=== PATIENT | male | born 1945 | race American Indian/Alaskan Native ===

== ENCOUNTER 2017-04-14 05:01 | Emergency (ER) | payer MEDICARE, BC ==
[2017-04-14 05:48] LABS: Basophils % (Auto) 0.5 % (0.0-1.8); Hematocrit 46.4 % (35.5-45.6); Hemoglobin 15.7 gm/dl (11.8-15.2); Mean Corpuscular HGB Conc 34 % (32-34); Mean Corpuscular Hemoglobin 32 pg (28-32); Mean Corpuscular Volume 95 fl (84-94); Platelet Count 224 K/mm3 (140-440); Red Blood Count 4.89 M/mm3 (3.65-5.03); Red Cell Distribution Width 13.6 % (13.2-15.2); White Blood Count 7.8 K/mm3 (4.5-11.0)
[2017-04-14 05:59] LABS: INR 0.85 (0.87-1.13)
[2017-04-14 06:00] LABS: Partial Thromboplastin Time 26.8 Sec. (24.2-36.6)
[2017-04-14 06:07] LABS: Anion Gap 20 mmol/L; BUN/Creatinine Ratio 15.71; Blood Urea Nitrogen 11 mg/dL (9-20); Calcium 9.7 mg/dL (8.4-10.2); Carbon Dioxide 21 mmol/L (22-30); Chloride 102.2 mmol/L (98-107); Glucose 162 mg/dL (75-100); Potassium 4.7 mmol/L (3.6-5.0); Sodium 138 mmol/L (137-145)
[2017-04-14 07:49] LABS: Bilirubin,Urine NEG (Negative); Blood,Urine SM (Negative); Ketones,Urine NEG (Negative); Leukocyte Esterase,Urine NEG (Negative); Mucus,Urine FEW /HPF; Nitrite,Urine NEG (Negative); Protein,Urine <15 mg/dL mg/dL (Negative); Urobilinogen,Urine < 2.0 mg/dL (<2.0); WBC,Urine < 1.0 /HPF (0.0-6.0)
[2017-04-14] MEDS ORDERED: BABY ASPIRIN PO ONE (10:04)
--- NOTE | 2017-04-14 10:04 | Emergency Department Report ---
ED Chest Pain HPI - General Chief Complaint: Chest Pain Stated Complaint: CHEST AND BACK PAIN Time Seen by Provider: 04/14/17 10:00 Source: patient Mode of arrival: Ambulatory Limitations: No Limitations - History of Present Illness Initial Comments: Patient is a 72-year-old male with a history of hypertension, diabetes, and chronic back pain who presents with right upper back pain and chest pain. Patient reports for the last 3 days he's had right upper back pain that radiates around to the right side of his chest. Pain is constant, sharp, exacerbated with movement and deep breaths. Patient reports it started with right lower back pain has now migrated up to his right shoulder blade and around the R side of the chest. Pt has had lower back pain in the past, but not R upper back pain. Otherwise no fevers, chills, ORANTES, diaphoresis, SOB, jaw pain, extremity pains, paresthesias, abdominal pain, NVD, lower leg edema/pain, travel , or sick contacts. PMD: Dr Neena MIRAMONTES Complaint: chest pain - Related Data Home Medications Medication Instructions Recorded Confirmed Last Taken Aspirin [Aspirin BABY CHEW TAB] 81 mg PO DAILY 04/14/17 04/14/17 Unknown Losartan [Cozaar] 50 mg PO DAILY 04/14/17 04/14/17 Unknown Previous Rx's Medication Instructions Recorded Last Taken Type Levofloxacin [Levaquin] 750 mg PO QDAY #7 tablet 04/14/17 Unknown Rx Naproxen [Naprosyn] 500 mg PO BID PRN #14 tablet 04/14/17 Unknown Rx Allergies Allergy/AdvReac Type Severity Reaction Status Date / Time No Known Allergies Allergy Unverified 04/14/17 05:18 Heart Score - HEART Score History: Moderately suspicious EKG: Normal Age: > 65 Risk factors: 1-2 risk factors Troponin: < normal limit HEART Score: 4 ED Review of Systems ROS: Stated complaint: CHEST AND BACK PAIN Other details as noted in HPI Comment: All other systems reviewed and negative ED Past Medical Hx - Past Medical History Previous Medical History?: Yes Hx Hypertension: Yes Hx Diabetes: Yes - Social History Smoking Status: Current Every Day Smoker - Medications Home Medications: Home Medications Medication Instructions Recorded Confirmed Last Taken Type Aspirin [Aspirin BABY CHEW TAB] 81 mg PO DAILY 04/14/17 04/14/17 Unknown History Levofloxacin [Levaquin] 750 mg PO QDAY #7 tablet 04/14/17 Unknown Rx Losartan [Cozaar] 50 mg PO DAILY 04/14/17 04/14/17 Unknown History Naproxen [Naprosyn] 500 mg PO BID PRN #14 tablet 04/14/17 Unknown Rx ED Physical Exam - General Limitations: No Limitations General appearance: alert, in no apparent distress - Head Head exam: Present: atraumatic, normocephalic - Eye Eye exam: Present: normal appearance - ENT ENT exam: Present: mucous membranes moist - Neck Neck exam: Present: normal inspection - Respiratory Respiratory exam: Present: normal lung sounds bilaterally. Absent: respiratory distress, wheezes, rales, rhonchi, stridor - Cardiovascular Cardiovascular Exam: Present: regular rate, normal rhythm. Absent: bradycardia , tachycardia, systolic murmur, diastolic murmur, rubs, gallop - GI/Abdominal GI/Abdominal exam: Present: soft, normal bowel sounds. Absent: distended, tenderness, guarding, rebound, rigid - Rectal Rectal exam: Present: deferred - Extremities Exam Extremities exam: Present: normal inspection - Back Exam Back exam: Present: normal inspection, tenderness. Absent: full ROM (decreased due to pain) - Neurological Exam Neurological exam: Present: alert, oriented X3 - Psychiatric Psychiatric exam: Present: normal affect, normal mood - Skin Skin exam: Present: warm, dry, intact, normal color. Absent: rash ED Course Vital Signs 04/14/17 04/14/17 04/14/17 05:22 11:34 11:35 Temperature 98.7 F 98.3 F Pulse Rate 95 H 80 Respiratory 18 16 18 Rate Blood Pressure 145/89 Blood Pressure 143/87 [Left] O2 Sat by Pulse 95 100 96 Oximetry 04/14/17 12:13 Temperature 98.3 F Pulse Rate 85 Respiratory 20 Rate Blood Pressure Blood Pressure 132/84 [Left] O2 Sat by Pulse 95 Oximetry - Reevaluation(s) Reevaluation #1: 04/14/17 12:35 Pt reports significant improvement with pain SABINE score - Sabine Score Age > 65: (1) Yes Aspirin use within the Past 7 Days: (1) Yes 3 or more CAD Risk Factors: (1) Yes 2 or more Angina events in past 24 hrs: (0) No Known CAD with more than 50% Stenosis: (0) No Elevated Cardiac Markers: (0) No ST Deviation Greater than 0.5mm: (0) No SABINE Score: 3 ED Medical Decision Making - Lab Data Result diagrams: 04/14/17 05:34 04/14/17 05:34 - EKG Data -: EKG Interpreted by Me - EKG Data 04/14/17 10:02 EKG 05:04 Normal sinus rhythm at 94 beats per min, QTC 422 ms, left atrial enlargement, normal axis, no LVH, no ST changes, no STEMI - Radiology Data Radiology results: report reviewed CXR: Bibasilar atelectasis, questionable right basilar infiltrate - Medical Decision Making Pt reports significant improvement, given R sided sx and infiltrate, will treat as PNA. Pt to follow up with PMD this week Critical care attestation.: If time is entered above; I have spent that time in minutes in the direct care of this critically ill patient, excluding procedure time. ED Disposition Clinical Impression: Right-sided chest pain, PNA (pneumonia) Disposition: TO HOME OR SELFCARE Is pt being admited?: No Condition: Stable Instructions: Chest Pain (ED), Bacterial Pneumonia (ED) Prescriptions: Levofloxacin [Levaquin] 750 mg PO QDAY #7 tablet Naproxen [Naprosyn] 500 mg PO BID PRN #14 tablet PRN Reason: Pain
[2017-04-14] MEDS ORDERED: TORADOL IV ONE (10:35)
--- NOTE | 2017-04-14 11:03 | XRay Report ---
PA and lateral chest: There is atelectasis or infiltrate at the right lung base. Mild patchy atelectasis present at the left lung base. The mid and upper portions of the lungs are clear. The aorta is tortuous. The heart is normal in size. Is no vascular congestion. No recent prior studies are available for comparison. Impression: Bibasilar atelectasis with questionable right basilar infiltrate.
[2017-04-14 11:46] LABS: Bilirubin,Urine NEG (Negative); Blood,Urine SM (Negative); Ketones,Urine NEG (Negative); Leukocyte Esterase,Urine NEG (Negative); Mucus,Urine FEW /HPF; Nitrite,Urine NEG (Negative); Protein,Urine <15 mg/dL mg/dL (Negative); Urobilinogen,Urine < 2.0 mg/dL (<2.0); WBC,Urine < 1.0 /HPF (0.0-6.0)
[2017-04-14 12:13] VITALS: BP 132/84
== END 2017-04-14 13:30 | disposition home or self-care (01) ==
LOC: ED 05:01
DX: J18.9 Pneumonia, unspecified organism (principal); R07.9 Chest pain, unspecified; I10 Essential (primary) hypertension; E11.9 Type 2 diabetes mellitus without complications; F17.200 Nicotine dependence, unspecified, uncomplicated
CPT/HCPCS: 36415; 71020; 80048; 81001; 84484; 85025; 85379; 85610; 85730; 93005; 93010; 96374; 99285; J1885

== ENCOUNTER 2022-04-08 05:45 | Day surgery (SDC) | payer MEDICARE ==
[2022-04-04 11:27] LABS: Hematocrit 43.4 % (35.5-45.6); Mean Corpuscular HGB Conc 35 % (32-34); Mean Corpuscular Volume 92 fl (84-94); Platelet Count 223 K/mm3 (140-440); Red Blood Count 4.73 M/mm3 (3.65-5.03); Red Cell Distribution Width 13.3 % (13.2-15.2)
[2022-04-04 11:47] LABS: Alanine Aminotransferase 23 units/L (7-56); Albumin 4.5 g/dL (3.9-5); BUN/Creatinine Ratio 19; Blood Urea Nitrogen 15 mg/dL (9-20); Hemolysis Index 5
[2022-04-08] MEDS ORDERED: LACTATED RINGERS 1,000 ML IV SCH (06:00)
--- NOTE | 2022-04-08 07:33 | Anesthesia Consultation ---
Anesthesia Consult and Med Hx Date of service: 04/08/22 - Airway Anesthetic Teeth Evaluation: Good (multiple missing teeth; denies loose teeth) ROM Head & Neck: Adequate Mental/Hyoid Distance: Adequate Mallampati Class: Class II Intubation Access Assessment: Probably Good - Pre-Operative Health Status ASA Pre-Surgery Classification: ASA3 Proposed Anesthetic Plan: General - Pulmonary Hx Smoking: Yes (quit 2wks ago) Hx Respiratory Symptoms: No Hx Sleep Apnea: Yes (occasional CPAP) - Cardiovascular System Hx Hypertension: Yes Hx Heart Attack/AMI: No Hx Percutaneous Transluminal Coronary Angioplasty (PTCA): No - Central Nervous System CVA: No Hx Psychiatric Problems: Yes (PTSD) - Endocrine Hx Renal Disease: No Hx Liver Disease: No Hx Non-Insulin Dependent Diabetes: Yes Hx Thyroid Disease: No - Other Systems Hx Substance Use: Yes (occasional THC) - Additional Comments Anesthesia Medical History Comments: No hx anesthetic complications. Off ASA since 04/01/22.
[2022-04-08] MEDS ORDERED: HYDROcodone/ACETAMINOPHEN 5-325 MG TAB PO PRN (07:34)
[2022-04-08] MEDS ORDERED: fentaNYL 100 MCG/2 ML INJ IV PRN (07:34)
--- NOTE | 2022-04-08 07:34 | Anesthesia Day of Surgery ---
Anesthesia Day of Surgery - Day of Surgery Patient Examined: Yes Patient H&P Reviewed: Yes Patient is NPO: Yes
[2022-04-08] MEDS ORDERED: LIDOCAINE MPF (2%) 20 MG/1 ML VIAL 5 ML ONE (07:39)
[2022-04-08] MEDS ORDERED: ONDANSETRON 4 MG/2 ML INJ ONE (07:39)
[2022-04-08] MEDS ORDERED: propofoL 200 MG/20 ML VIAL IV ONE (07:40)
[2022-04-08] MEDS ORDERED: MIDAZOLAM 2 MG/2 ML INJ ONE (07:55)
[2022-04-08] MEDS ORDERED: ceFAZolin/STERILE WATER 2 GM/20 ML SYRINGE IV NR (08:00)
[2022-04-08] MEDS ORDERED: MIDAZOLAM 2 MG/2 ML INJ IV NR (08:00)
[2022-04-08] MEDS ORDERED: ePHEDrine SULFATE 50 MG/1 ML INJ ONE (08:29)
[2022-04-08] MEDS ORDERED: WATER FOR IRRIG STERILE 2000 ML IR ONE (08:40)
--- NOTE | 2022-04-08 08:46 | Short Stay Summary ---
Short Stay Documentation Date of service: 04/08/22 - History H&P: obtained from office - Allergies and Medications Current Medications: Allergies No Known Allergies Allergy (Verified 04/03/22 14:48) Home Medications Medication Instructions Recorded Confirmed Last Taken Type Aspirin [Aspirin BABY CHEW TAB] 81 mg PO DAILY 04/14/17 04/03/22 Unknown History Losartan [Cozaar] 100 mg PO DAILY 04/14/17 04/03/22 Unknown History Adult Multi Gummies 1 dose PO DAILY 04/03/22 04/03/22 Unknown History Metformin HCl [metFORMIN] 1,000 mg PO DAILY 04/03/22 04/03/22 Unknown History Pravastatin [Pravachol] 20 mg PO DAILY 04/03/22 04/03/22 Unknown History Sildenafil Citrate [Viagra] 100 mg PO PRN 04/03/22 04/03/22 Unknown History Active Medications Hydrocodone Bitart/Acetaminophen (Hydrocodone/Acetaminophen 5-325 Mg Tab) 2 each PO ONCE PRN PRN Reason: Pain, Moderate (4-6) Stop: 04/08/22 20:00 Cefazolin Sodium (Cefazolin/Sterile Water 2 Gm/20 Ml Syringe) 2 gm IV PREOP NR Stop: 04/08/22 20:00 Fentanyl (Fentanyl 100 Mcg/2 Ml Inj) 50 mcg IV Q5MIN PRN PRN Reason: Pain , Severe (7-10) Stop: 04/08/22 20:00 Lactated Ringer's (Lactated Ringers) 1,000 mls @ 100 mls/hr IV DIRECT DWAIN Stop: 04/08/22 23:59 - Brief post op/procedure progress note Date of procedure: 04/08/22 Pre-op diagnosis: hematuria Procedure: cysto, rpg, urethral Anesthesia: GETA Surgeon: DENISHA CISNEROS - Hospital course Hospital course: macrobid & ultram - Disposition Condition at discharge: Stable Disposition: 01 HOME / SELF CARE / HOMELESS Short Stay Discharge Plan Follow up with: JANNETH CONROY MD [Primary Care Provider] - 7 Days
--- NOTE | 2022-04-08 08:47 | Short Stay Summary ---
Short Stay Documentation Date of service: 04/08/22 - History H&P: obtained from office - Allergies and Medications Current Medications: Allergies No Known Allergies Allergy (Verified 04/03/22 14:48) Home Medications Medication Instructions Recorded Confirmed Last Taken Type Aspirin [Aspirin BABY CHEW TAB] 81 mg PO DAILY 04/14/17 04/03/22 Unknown History Losartan [Cozaar] 100 mg PO DAILY 04/14/17 04/03/22 Unknown History Adult Multi Gummies 1 dose PO DAILY 04/03/22 04/03/22 Unknown History Metformin HCl [metFORMIN] 1,000 mg PO DAILY 04/03/22 04/03/22 Unknown History Pravastatin [Pravachol] 20 mg PO DAILY 04/03/22 04/03/22 Unknown History Sildenafil Citrate [Viagra] 100 mg PO PRN 04/03/22 04/03/22 Unknown History Active Medications Hydrocodone Bitart/Acetaminophen (Hydrocodone/Acetaminophen 5-325 Mg Tab) 2 each PO ONCE PRN PRN Reason: Pain, Moderate (4-6) Stop: 04/08/22 20:00 Cefazolin Sodium (Cefazolin/Sterile Water 2 Gm/20 Ml Syringe) 2 gm IV PREOP NR Stop: 04/08/22 20:00 Fentanyl (Fentanyl 100 Mcg/2 Ml Inj) 50 mcg IV Q5MIN PRN PRN Reason: Pain , Severe (7-10) Stop: 04/08/22 20:00 Lactated Ringer's (Lactated Ringers) 1,000 mls @ 100 mls/hr IV DIRECT DWAIN Stop: 04/08/22 23:59 - Brief post op/procedure progress note Date of procedure: 04/08/22 Pre-op diagnosis: hematuria Post-op diagnosis: same Procedure: cysto - Disposition Condition at discharge: Stable Disposition: 01 HOME / SELF CARE / HOMELESS Short Stay Discharge Plan Follow up with: JANNETH CONROY MD [Primary Care Provider] - 7 Days
--- NOTE | 2022-04-08 09:39 | Operative Report ---
DATE OF SURGERY: 04/08/2022 PREOPERATIVE DIAGNOSIS: Hematuria. POSTOPERATIVE DIAGNOSES: Hematuria, urethral stricture. PROCEDURES: Cystoscopy, bilateral retrograde pyelograms, urethral dilatation (22-Chilean). SURGEON: Sai Leslie MD ANESTHESIA: General. ESTIMATED BLOOD LOSS: Minimal. FLUIDS: Crystalloid. COMPLICATIONS: No complications. INDICATIONS: This patient is a 77-year-old gentleman known to our service with history of persistent hematuria. He is a smoker. CT unremarkable except for some degenerative changes in the spine. He presents now for endoscopic evaluation. DESCRIPTION OF PROCEDURE: The patient was taken to the operative suite, placed in a supine position. After adequate general anesthesia, placed in the dorsal lithotomy position, prepped and draped in a sterile fashion. Urethroscopy was performed. The patient had some narrowing of the bulbar urethra. A 0.035 Glidewire was placed. Urethroscopy was performed and I was able to advance the scope past the stricture after dilation to 22-Chilean. Prostate displayed some mild to moderate obstruction. Bladder, no tumors or stones were noted. Mild diffuse trabeculation. Bilateral retrograde pyelograms were obtained with an 8-Chilean [place] catheter and 8 mL of contrast. The patient did have some J hooking. No filling defects or obstruction could be appreciated. Bladder was drained. Rectal exam was benign. He was extubated and taken to recovery room. He will go home on Macrobid and Ultram. TID: [id number] RECEIPT: [id number] TRICIA/ELIEL/ALTAF
[2022-04-08 09:51] VITALS: BP 125/66
--- NOTE | 2022-04-08 10:13 | Fluoroscopy Report ---
FL retrograde urography Technique: Intraoperative fluoroscopic guidance was provided. Fluoroscopy time: 6 seconds. Fluoroscopy images: 2. Findings/Impression: Intraoperative fluoroscopic guidance for cystoscopy/bilateral RPGs. Please see p rocedure report for further details. Signer Name: Kennedy Hardin MD Signed: 04/08/2022 10:08 AM Workstation Name: [id number]
--- NOTE | 2022-04-08 14:43 | Post Anesthesia Evaluation ---
- Post Anesthesia Evaluation Patient Participated: Yes Airway Patent: Yes Stable Respiratory Function: Yes Nausea/Vomiting: No Temp > 96.8F: Yes Pain Manageable: Yes Adequeate Hydration: Yes Anesthesia Complications: No
== END 2022-04-08 09:40 | disposition home or self-care (01) ==
LOC: OR 05:45
PROVIDERS: ATTEND Urology
DX: R31.9 Hematuria, unspecified (principal); N35.819 Other urethral stricture, male, unspecified site; G43.909 Migraine, unspecified, not intractable, without status migrainosus; E78.00 Pure hypercholesterolemia, unspecified; I10 Essential (primary) hypertension; G47.30 Sleep apnea, unspecified; K21.9 Gastro-esophageal reflux disease without esophagitis; M19.90 Unspecified osteoarthritis, unspecified site; E11.9 Type 2 diabetes mellitus without complications; F32.9 Major depressive disorder, single episode, unspecified; F41.9 Anxiety disorder, unspecified; Z72.89 Other problems related to lifestyle; Z20.822 Contact with and (suspected) exposure to COVID-19; Z79.899 Other long term (current) drug therapy; Z79.82 Long term (current) use of aspirin; Z87.891 Personal history of nicotine dependence; Z98.41 Cataract extraction status, right eye; Z98.42 Cataract extraction status, left eye; Z98.890 Other specified postprocedural states
CPT/HCPCS: 36415; 52281; 74420; 80053; 82962; 85027; C1758; C1769; J0690; J2250; J2405; J2704; J3010; J3490; J7120; Q9967; U0003